=== PATIENT | female | born 1975 | race Caucasian/White ===

== ENCOUNTER → 2017-04-28 | Outpatient (CLI) | payer BC ==
[~2017-04-28] MED LIST: CETI5TAB5 PO; DIPH25CA5 PO
== END | disposition home or self-care (01) ==
LOC: C.PAPS 16:18
PROVIDERS: ATTEND Obstetrics & Gynecology
DX: Z01.419 Encounter for gynecological examination (general) (routine) without abnormal findings (principal)

== ENCOUNTER → 2017-05-20 | Outpatient (CLI) | payer BC ==
[~2017-05-20] MED LIST changes: +BND25 PO; -DIPH25CA5 PO
--- NOTE | 2017-05-20 15:37 | MAMMOGRAPHY REPORT ---
BILATERAL DIGITAL SCREENING MAMMOGRAM WITH CAD: 05/20/2017 CLINICAL HISTORY: Patient presents for routine screening. S/P bilateral augmentation. TECHNIQUE: Bilateral CC and MLO views of the breasts with and without implant displacement views were obtained. Current study was also evaluated with a Computer Aided Detection (CAD) system. COMPARISON: Comparison is made to exams dated: 05/24/2015 mammogram, 11/30/2013 ultrasound, 05/23/2016 ma mmogram, and 11/30/2013 mammogram - [facility]. BREAST COMPOSITION: The tissue of both breasts is extremely dense, which lowers the sensitivity of m ammography. FINDINGS: Bilateral subpectoral saline implants are intact. No suspicious mass, architectural distor tion or cluster of suspicious microcalcifications is seen. IMPRESSION: ACR BI-RADS CATEGORY 1: NEGATIVE There is no mammographic evidence of malignancy. A 1 year screening mammogram is recommended. The pa tient will receive written notification of the results. Approximately 10% of breast cancers are not detected with mammography. A negative mammographic report should not delay biopsy if a clinically suggestive mass is present. Nga Bynum M.D. ay/:05/20/2017 14:46:26 Artist Model: Deneen Santillan, [facility] letter sent: Normal 1/2 BI-RADS Code: ACR BI-RADS Category 1: Negative
== END | disposition home or self-care (01) ==
LOC: C.MAMM 07:16
PROVIDERS: ATTEND Obstetrics & Gynecology
DX: Z12.31 Encounter for screening mammogram for malignant neoplasm of breast (principal); Z98.82 Breast implant status

== ENCOUNTER → 2018-02-24 | Outpatient (CLI) | payer BC, OTHER ==
[~2018-02-24] MED LIST changes: -BND25 PO; +DIPH25CA5 PO; +SINCALIDE IV ONE; +SODIUM CHLORIDE 0.9% IV ONE
--- NOTE | 2018-02-24 10:20 | DIAGNOSTIC IMAGING REPORT ---
NUCLEAR MEDICINE HEPATOBILIARY SCAN WITH EJECTION FRACTION ANALYSIS CLINICAL HISTORY: RIGHT UPPER QUADRANT PAIN R1011 COMPARISON STUDY: No previous studies for comparison. FINDINGS: The patient was injected with 5.6 mCi of technetium 99m Choletec. Anterior imaging was performed. Hepatic excretion is unremarkable in appearance. The gallbladder was first visualized at 20 minute film. At 1 hour, the patient was administered 1.2 mcg of sincalide utilizing a 30 minute intravenous infusion. The gallbladder ejection fraction is normal measuring 80%. IMPRESSION: Normal study. No evidence of cystic duct obstruction. Normal gallbladder ejection fraction of 80%. Electronically signed by: Marcus Pinto M.D. 02/24/2018 10:19 AM Dictated Date/Time: 02/24/2018 10:12 AM
== END | disposition home or self-care (01) ==
LOC: C.NUCL 07:43
PROVIDERS: ATTEND Family Medicine
DX: R10.11 Right upper quadrant pain (principal)

== ENCOUNTER → 2018-03-09 | Outpatient (CLI) | payer BC ==
[~2018-03-09] MED LIST changes: -SINCALIDE IV ONE; -SODIUM CHLORIDE 0.9% IV ONE
== END | disposition home or self-care (01) ==
LOC: C.PAPS 14:13
PROVIDERS: ATTEND Obstetrics & Gynecology
DX: Z01.419 Encounter for gynecological examination (general) (routine) without abnormal findings (principal)

== ENCOUNTER → 2018-03-17 | Outpatient (CLI) | payer BC ==
--- NOTE | 2018-03-18 15:29 | MAMMOGRAPHY REPORT ---
BILATERAL DIGITAL SCREENING MAMMOGRAM TOMOSYNTHESIS WITH CAD: 03/17/2018 CLINICAL HISTORY: Routine screening. Patient has no complaints. TECHNIQUE: Bilateral CC and MLO views of the breasts with and without implant displacement views wer e obtained. Tomosynthesis was also performed on the implant displaced views. Current study was also evaluated with a Computer Aided Detection (CAD) system. COMPARISON: Comparison is made to exams dated: 05/20/2017 mammogram, 05/23/2016 mammogram, 05/24/2015 ma mmogram, 11/30/2013 mammogram, and 11/30/2013 ultrasound - [facility]. BREAST COMPOSITION: The tissue of both breasts is extremely dense, which lowers the sensitivity of m ammography. FINDINGS: Bilateral subpectoral saline implants are intact. No suspicious mass, architectural distor tion or cluster of microcalcifications is seen. IMPRESSION: ACR BI-RADS CATEGORY 1: NEGATIVE There is no mammographic evidence of malignancy. A 1 year screening mammogram is recommended. The pa tient will receive written notification of the results. Approximately 10% of breast cancers are not detected with mammography. A negative mammographic report should not delay biopsy if a clinically suggestive mass is present. Nag Bynum M.D. ay/:03/17/2018 15:51:31 [employer]inding Machine Hand: Swati BONDS(Roger)(M), [facility] letter sent: Normal 1/2 BI-RADS Code: ACR BI-RADS Category 1: Negative
== END | disposition home or self-care (01) ==
LOC: C.MAMM 11:58
PROVIDERS: ATTEND Obstetrics & Gynecology
DX: Z12.31 Encounter for screening mammogram for malignant neoplasm of breast (principal); Z98.82 Breast implant status

== ENCOUNTER → 2018-03-24 | Outpatient (CLI) | payer BC ==
[~2018-03-24] MED LIST changes: +GADAVIST IV PRN; +GLUCAGON FOR INJ 1 MG VIAL IM SCH; +NURSING VERBAL MED ORDER ONE
--- NOTE | 2018-03-24 13:45 | DIAGNOSTIC IMAGING REPORT ---
MR ENTEROGRAPHY CLINICAL HISTORY: Eosinophilic esophagitis. Chronic diarrhea. COMPARISON STUDY: Abdominal ultrasound dated 09/25/2017. Abdominal CT dated 04/27/2008. TECHNIQUE: MR enterography of the abdomen and pelvis is performed utilizing various T1 and T2-weighted sequences in the axial and coronal planes. Contrast-enhanced sequences were acquired following the IV administration of 6.3 cc of Gadavist. 1 mg of intramuscular glucagon was administered for the examination. Dynamic coronal sequences were obtained. FINDINGS: The small bowel and colon are normal in course and caliber. There is no bowel obstruction. Normal peristalsis is identified on the dynamic sequences. There is moderate colonic fecal retention. There is subtle wall thickening and fluid thickening question involving loops of degenerative and ileum in the lower abdomen. These may be mildly hyperemic on the postcontrast imaging. There is no abdominal ascites. The liver, gallbladder, spleen, adrenal glands, kidneys, and pancreas are grossly unremarkable. No lymphadenopathy is identified in the abdomen or pelvis. The bladder is normal in appearance. The uterus is surgically absent. A subcentimeter T1 hyperintense focus in the right ovary likely resents a complex/hemorrhagic follicle. No adnexal lesion is identified. The bony structures demonstrate normal marrow signal intensity. Bilateral breast implants are noted. IMPRESSION: 1. There is no bowel obstruction. Normal peristaltic motion is identified. 2. Question mild/subtle wall thickening and fold thickening involving loops of small bowel in the pelvis involving both jejunum and ileum. These loops may also be slightly hyperemic on postcontrast imaging. This is of indeterminant significance and may be artifactual. Nonspecific inflammation could also potentially have this appearance. Electronically signed by: Nilo Cordero M.D. 03/24/2018 1:44 PM Dictated Date/Time: 03/24/2018 1:26 PM
== END | disposition home or self-care (01) ==
LOC: C.MRI 11:08
PROVIDERS: ATTEND Internal Medicine Gastroenterology
DX: R19.7 Diarrhea, unspecified (principal)